=== PATIENT | male | born 2000 | race Caucasian/White ===

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

== ENCOUNTER → 2018-02-15 | Outpatient (CLI) | payer BC | END | disposition home or self-care (01) | LOC: C.LABBC 08:39 | PROVIDERS: ATTEND Family Medicine Adult Medicine | DX: R80.9 Proteinuria, unspecified (principal) ==